=== PATIENT | female | born 1995 | race Caucasian/White ===

== ENCOUNTER 2020-12-17 11:21 | Outpatient (CLI) | payer OTHER, SELFPAY ==
--- NOTE | 2020-12-17 | DI.RAD_ITS ---
Exam(s) XR LUMBAR SPINE AP, LAT EXAM: XR LUMBAR SPINE AP, LAT CLINICAL HISTORY: LUMBAR BACK PAIN, M54.5. TECHNIQUE: 2D digital imaging was performed. COMPARISON: CR THORACIC SPINE from 10/25/2011 CR THORACIC SPINE from 10/25/2011 FINDINGS: Rods are seen from the lower thoracic region extending down to the L4 level. The hardware and spinal alignment appears unchanged based on previous thoracic spine films. There are T roll bodies are wel l maintained in height. The L4-5 and L5-S1 discs appear normal. The SI joints are unremarkable. IMPRESSION: Stable appearance spinal hardware. DATA REPOSITORY: RADIATION DOSE DELIVERED:
== END 2020-12-17 11:41 ==
PROVIDERS: PCP Physician Assistant; Visit Provider Clinical Nurse Specialist Family Health
DX: M54.5 Low back pain (principal); Z98.890 Other specified postprocedural states; Z98.1 Arthrodesis status
CPT/HCPCS: 72100

== ENCOUNTER → 2021-10-28 13:32 | Outpatient (CLI) | payer OTHER, SELFPAY ==
--- NOTE | 2021-10-28 13:30 | DI.RAD_ITS ---
Exam(s) XR THORACIC SPINE COMPLETE EXAM: XR THORACIC SPINE COMPLETE CLINICAL HISTORY: evaluate vertebral alignment and spacing, M54.6, thoracic back pain. TECHNIQUE: 2D digital imaging was performed. Three views. COMPARISON: MR MRI - THORACIC SPINE WO CONT from 07/22/2009 CR CERVICAL SP. LIMITED (TRAUMA) from 10/25/2011 CR XR LUMBAR SPINE AP, LAT from 12/17/2020 FINDINGS: There are spinal rods extending from the upper thoracic level through the lumbar level. There is a s coliosis convex toward the right in the thoracic region and a known scoliosis convex toward the left in the lumbar region. The samuel somewhat obscure the vertebral bodies on the AP view. No compression deformities are seen. The heart size is normal. The visualized portions of the lungs are clear. IMPRESSION: Spinal rods for correction of scoliosis. DATA REPOSITORY: RADIATION DOSE DELIVERED:
--- OUTSIDE RECORDS SUMMARY | 2021-10-28 13:37 | XMS_ITS | Clinical Summary ---
:1995 Author Organization [facility] [place] [address] Care Team Providers Name Role Phone Michelle Schulz MD Primary Care Provider Allergies No known active allergies Medications Medication Sig Dispensed Refills Start Date End Date Status ranitidine (ZANTAC 75) 0 06/02/2010 Active 75 mg tablet norgestimate-ethinyl Take 1 tablet by 0 Active estradiol (ORTHO mouth daily. TRI-CYCLEN;TRI-SPRINTE C) 0.18/0.215/0.25 mg-35 mcg (28) tablet FERROUS SULFATE, DRIED Take by mouth. 0 Active (IRON, DRIED, ORAL) sertraline (ZOLOFT) 50 Take 75 mg by 0 Active mg tablet mouth daily. Active Problems Problem Noted Date Celiac disease 02/15/2012 Folliculitis 03/01/2011 Resolved Problems Problem Noted Date Resolved Date CIS - Entered not Verified 05/10/2010 02/15/2012 CIS - abd pain 04/04/2010 02/15/2012 Immunizations Name Administration Dates Next Due Pneumococcal Polyvalent 23 09/25/2012 Social History Tobacco Use Types Packs/Day Years Used Date Never Smoker Alcohol Use Standard Drinks/Week Comments No 0 (1 standard drink = 0.6 oz pure alcoho l) Sex Assigned at Date Recorded Not on file Last Filed Vital Signs Vital Sign Reading Time Taken Comments Blood Pressure 94/64 09/25/2012 11:02 AM EDT Pulse 90 09/25/2012 11:02 AM EDT Temperature 36.7 ??C (98.1 ??F) 02/19/2012 9:18 AM EST Respiratory Rate 16 02/19/2012 10:04 AM EST Oxygen Saturation 99% 02/19/2012 10:04 AM EST Inhaled Oxygen Concentration - - Weight 47.4 kg (104 lb 9.6 oz) 09/25/2012 11:02 AM EDT Height 164.5 cm (5' 4.75) 09/25/2012 11:02 AM EDT Body Mass Index 17.54 09/25/2012 11:02 AM EDT Plan of Treatment Health Maintenance Due Date Last Done Comments Covid-19 Vaccine (#1) 08/25/2000 HPV vaccine (1 - 2-dose series) 08/25/2006 HIV screen 08/25/2013 Hepatitis C Screening 08/25/2013 Tdap adult 08/25/2014 Tetanus vaccine 08/25/2014 PAP Smear 08/25/2016 Influenza (Flu) vaccine (1 of 1 - Influenza standard 12/08/2021 series) Care Teams Classroom Instructor Relationship Specialty Start Date End Date Michelle Schulz MD PCP - General 03/01/10 [address] [place] [address]
--- OUTSIDE RECORDS SUMMARY | 2021-10-28 13:38 | XMS_ITS | Encounter Summary ---
:1995 Author Organization [facility] Address [address] [place] [address] Care Team Providers Name Role Phone Michelle Schulz MD Primary Care Provider Encounter Details Date Type Department Care Team Description 02/19/2012 Anesthesia Event Gastroenterology at [facility] Vern Holliday MD [facility] [address] [place] [address] [facility] Shaina Ro MD [facility] [place] [address] [place] [address] Anesthesia Record Procedure Summary Procedure Name Responsible Anesthesia Start Anesthesia Stop Anesthesiologist Time Time UPPER GASTROINTESTINAL Vern Holliday MD 02/19/12 0941 02/18 1004 ENDOSCOPY,WITH BIOPSY SINGLE OR MULTIPLE (WRVU 2.49) (N/A ) Events Date Time Event Comment 02/19/2012 0932 0941 Start 1004 Stop No medications on file. Agents No agents on file. Blood No blood administrations on file. Lines, Drains, and Airways Type Details Placement Removal PIV 02/19/12; 0934; 02/19/12; 02/19/12 0934 by Kimmie ponce, 02/19/12 1048 by Marvin, 1048 MEÑO Venegas RN documented in this encounter Social History Tobacco Use Types Packs/Day Years Used Date Never Smoker Alcohol Use Standard Drinks/Week Comments No 0 (1 standard drink = 0.6 oz pure alcoho l) Sex Assigned at Date Recorded Not on file documented as of this encounter OR Notes Anesthesia Postprocedure Evaluation - Vern Holliday MD - 02/19/2012 10:21 AM EST Patient: Dakota Cuevas Procedure(s) Performed: Procedure(s): UPPER GASTROINTESTINAL ENDOSCOPY,WITH BIOPSY SINGLE OR MULTIPLE Patient location: PACU Post-op pain: Adequate analgesia Post-op nausea: no nausea or vomiting Last Vitals: Filed Vitals: 02/19/12 1004 BP: 88/45 Pulse: 74 Temp: Resp: 16 Post-op cardiovascular and respiratory status: is stable Level of consciousness: awake Complications: no apparent complications Fluid Status: normal Anesthesia Preprocedure Evaluation - Vern Holliday MD - 02/19/2012 9:30 AM EST Today I evaluated Dakota Cuevas a 16 y.o. female. Procedure(s): PEDIATRIC UPPER GI ENDOSCOPY Patient Active Problem List Diagnoses ??? Celiac disease ??? Folliculitis No past medical history on file. No past surgical history on file. History Substance Use Topics ??? Smoking status: Never Smoker ??? Smokeless tobacco: Not on file ??? Alcohol Use: No No Known Allergies Operation for scoliosis about one year ago idiopathic Medications: MAR and/or home medications have been reviewed. Physical Exam: There were no vitals filed for this visit. There is no height or weight on file to calculate BMI. Airway Assessment: Mallampati: I TM distance: >3 FB Neck ROM: full Cardiovascular Assessment: Rhythm: regular Rate: normal Pulmonary Assessment: breath sounds clear to auscultation Dental Assessment: Misc Assessment: Anesthesia Plan: ASA 2 MAC with intravenous induction Informed Consent: Anesthetic plan and risks discussed with patient and mother. Plan discussed with resident. Misc. Assessment: documented in this encounter Miscellaneous Notes Addendum Note - Abbie Travis - 02/20/2012 10:18 AM EST Addendum created 02/20/12 1018 by Abbie Travis Modules edited:Anesthesia Events, Anesthesia Responsible Staff documented in this encounter Plan of Treatment Not on filedocumented as of this encounter Visit Diagnoses Not on filedocumented in this encounter Care Teams Arcade Technician Relationship Specialty Start Date End Date Michelle Schulz MD PCP - General 03/01/10 [address] [place] [address] documented as of this encounter
--- OUTSIDE RECORDS SUMMARY | 2021-10-28 13:38 | XMS_ITS | Encounter Summary ---
:1995 Author Organization [facility] [place] [address] Care Team Providers Name Role Phone Michelle Schulz MD Primary Care Provider Encounter Details Date Type Department Care Team Description 06/02/2010 Procedure visit [address] [address] Social History Tobacco Use Types Packs/Day Years Used Date Never Assessed Sex Assigned at Date Recorded Not on file documented as of this encounter Plan of Treatment Not on filedocumented as of this encounter Visit Diagnoses Not on filedocumented in this encounter Care Teams Project Controls Scheduler Relationship Specialty Start Date End Date Michelle Schulz MD PCP - General 03/01/10 [place] [address] documented as of this encounter
--- OUTSIDE RECORDS SUMMARY | 2021-10-28 13:38 | XMS_ITS | Encounter Summary ---
:1995 Author Organization [facility] [place] [address] Care Team Providers Name Role Phone Michelle Schulz MD Primary Care Provider Encounter Details Date Type Department Care Team Description 02/19/2012 Surgery Gastroenterology at [facility] Gricelda Edwards UPPER GASTROINTESTINAL [facility] Annabel Torrez MD ENDOSCOPY,[place] [address] ONE [facility]ICAL SINGLE OR MULTIPLE ([facility] [phone] Nicole) [place] [address] Social History Tobacco Use Types Packs/Day Years Used Date Never Smoker Alcohol Use Standard Drinks/Week Comments No 0 (1 standard drink = 0.6 oz pure alcoho l) Sex Assigned at Date Recorded Not on file documented as of this encounter Last Filed Vital Signs Vital Sign Reading Time Taken Comments Blood Pressure 88/45 02/19/2012 10:04 AM EST Pulse 74 02/19/2012 10:04 AM EST Temperature 36.7 ??C (98.1 ??F) 02/19/2012 9:18 AM EST Respiratory Rate 16 02/19/2012 10:04 AM EST Oxygen Saturation 99% 02/19/2012 10:04 AM EST Inhaled Oxygen Concentration - - Weight - - Height - - Body Mass Index - - documented in this encounter Discharge Instructions Discharge InstructionsNolan Wong RN - 02/19/2012 10:04 AM EST You may have received medication before and/or during your procedure which effects judgement and reaction time. Do not drive, operate machinery, drink alcoholic beverages, or make important decisions for 24 hours. Be careful on stairs, as you may be unsteady on your feet. You may eat a regular diet as tolerated. Do not smoke if you are alone. IV site -- slight redness or tenderness is normal. You may use a warm compress. If tenderness and redness increases or foul drainage occurs please contact your M.D. Please call [phone] before 5 pm with problems, questions or concerns. After 5pm call [phone] and ask to speak with the color strainer information officer. Discharge instructions reviewed with patientwho expresses understanding. AttachmentsThe following attachments cannot be sent through Care Everywhere. UPPER GI ENDOSCOPY IN CHILDREN: WHAT TO EXPECT AT HOME ([place])documented in this encounter Medications at Time of Discharge Medication Sig Dispensed Refills Start Date End Date norgestimate-ethinyl Take 1 tablet by 0 estradiol (ORTHO mouth daily. TRI-CYCLEN;TRI-SPRINTEC) 0.18/0.215/0.25 mg-35 mcg (28) tablet FERROUS SULFATE, DRIED Take by mouth. 0 (IRON, DRIED, ORAL) ranitidine (ZANTAC 75) 75 0 06/02/2010 mg tablet documented as of this encounter H&P Notes Gricelda Edwards MD - 02/19/2012 9:41 AM EST No change in resp status documented in this encounter Miscellaneous Notes Miscellaneous - Provider, Scanning - 02/19/2012 10:59 PM EST Miscellaneous - Provider, Scanning - 02/19/2012 10:56 PM EST Miscellaneous - Provider, Scanning - 02/19/2012 9:20 AM EST documented in this encounter Plan of Treatment Not on filedocumented as of this encounter Procedures Procedure Name Priority Date/Time Associated Comments Diagnosis UPPER GASTROINTESTINAL Routine 02/19/2012 7:55 Diarrhea ENDOSCOPY,WITH BIOPSY PM EST SINGLE OR MULTIPLE SURGICAL PATHOLOGY Routine 02/19/2012 11:54 Resul ts for this REPORT AM EST procedure are i n the results section. SPECIMEN TO PATHOLOGY Routine 02/19/2012 10:04 Re sults for this AM EST procedure are i n the results section. UPPER GASTROINTESTINAL 02/19/2012 9:45 Diarrhea ENDOSCOPY,WITH BIOPSY AM EST SINGLE OR MULTIPLE (WRVU 2.49) PEDIATRIC UPPER GI Routine 02/19/2012 9:38 Result s for this ENDOSCOPY AM EST procedure are i n the results section. documented in this encounter Results SURGICAL PATHOLOGY REPORT (02/19/2012 11:54 AM EST) Component Value Ref Test Analysis Performed At [facility] gist Range Method Time Signature Surgical [facility] ? [facility] Report ? Provider: ?? GRICELDA EDWARDS ?Pt. Name: ?? DAKOTA OSUNA ? Acc #: ?[id number] ?Pt. MRN: ?[id number] ? Col Date: ?? 02/19/20 12 ?/Sex: ?1995,(16 years),Female ? Rec Date: ?? 02/19/2012 ?LOC: ?4T ? SURGICAL PATHOLOGY ? ---Pathologic Diagnosis--- ? A - Duodenum; endoscopic biopsies: ? Duodenal mucosa with inflam mation, villous atrophy, and increased ? intraepithelial lymphocytes consistent with titi iac disease. ? CR-0 ? 02/20/12 ? KO ? 02/20/12 Verified by: ? Shaina Ruelas MD ? Pathologist ? (Electronic Si gnature) ? The attending pathologist whose signature appears o n this report has ? reviewed all diagnostic slides and has edited the hiram ss and/or ? microscopic portion of the report in rendering the fi nal pathologic ? diagnosis. ? ---Microscopic Description--- ? Slides reviewed, microscopic description not recorded . ? ---Gross Description--- ? Labeled/Fixative: ? Small bowel, formalin. ? Qty/Size/Weight: ?Four, averaging 0.3 x 0.2 x 0.2 cm. ? Tissue Description: ?? Soft, hussein tissues. ? Sections/Processing: ??(T1) ??aje/PPS ? ---Clinical Information--- ? Specimen Submitted: ? A - Small bowel ? Clinical History/Diagnosis: ? Positive celiac test Specimen (Source) Anatomical Collection Method Collection Time Re ceived Time Location / / Volume Laterality 02/19/2012 11:54 AM EST Gricelda Edwards MD PATHOLOGY/CYTOLOGY ORDERABLE S Performing Organization Address City/State/ZIP Code Phon e Number [address] [facility] Specimen to Pathology (surgical or derm) (02/19/2012 10:04 AM EST) Specimen Anatomical Collection Method Collection Time Receive d Time (Source) Location / / Volume Laterality AP Specimen 02/19/2012 10:04 02/19/2012 AM EST 10:04 AM EST Narrative [facility] - 02/19/2012 10:04 AM EST Specimen requisition ordered. ??Separate Pathology report to follow Gricelda Edwards MD PATHOLOGY/CYTOLOGY ORDERABLE S Performing Organization Address City/[facility]/[place] [address] [facility] [employer] PEDIATRIC UPPER GI ENDOSCOPY (02/19/2012 9:38 AM EST) [facility] gist Method Time Signature [facility] [employer] Upper Gi Endo Endoscopy Patient Name: Dakota Cuevas ? Procedure Date: 02/19/2012 9:38 AM ? Date of : 1995 ? Age: 16 ? Order #: [id number] ? Procedure: ? Pediatric Upper GI Endoscopy Indications: ? positive celiac blood test Providers: ? Gricelda Edwards MD, Abbie Tony RN Referring : ?Michelle Schulz MD Medicines: ? General Anesthesia without ET Tube Complications: ? No immediate complications. Procedure: ? After obtaining informed consent, the ? endoscope was passed under di rect ? vision. Throughout the proced ure, the ? patient's blood pressure, pul se, and ? oxygen saturations were monit ored ? continuously. The [place] 2 012 was ? introduced through the mouth, and ? advanced to the fourth part o f ? duodenum. The upper GI endosc opy was ? accomplished with ease. ? Findings: ? nl stomach and esophageal mucosa. Small bowel with ? notching-biopsied ? Impression: ?celiac likely Recommendation: ?- Await pathology results. ? Gricelda Edwards MD 02/19/2012 10:07 AM This report has been signed electronically. Number of Addenda: 0 Note Initiated On: 02/19/2012 9:38 AM Specimen (Source) Anatomical Collection Method Collection Time Re ceived Time Location / / Volume Laterality 02/19/2012 9:38 AM EST Michelle Schulz MD GENERAL SURGICAL ORDERABLES Performing Organization Address City/State/ZIP Code Phon e Number [employer] documented in this encounter Visit Diagnoses Diagnosis Diarrhea Diarrhea documented in this encounter Active and Recently Administered Medications Care Teams Meat Apprentice Relationship Specialty Start Date End Date Michelle Schulz MD PCP - General 03/01/10 [address] [place] [address] documented as of this encounter
--- OUTSIDE RECORDS SUMMARY | 2021-10-28 13:38 | XMS_ITS | Encounter Summary ---
:1995 [place] [address] Care Team Providers Name Role Phone Michelle Schulz MD Primary Care Provider Encounter Details Date Type Department Care Team Description 04/07/2010 Hospital En[place] [facility] [place] Anali [place] MD [facility] [place] [address] [place] [address] [phone] (Wo rk) Social History Tobacco Use Types Packs/Day Years Used Date Never Assessed Sex Assigned at Date Recorded Not on file documented as of this encounter Plan of Treatment Not on filedocumented as of this encounter Visit Diagnoses Not on filedocumented in this encounter Care Teams Bath Mix Operator Relationship Specialty Start Date End Date Michelle Schulz MD PCP - General 03/01/[address] [place] [address] [place] [address] documented as of this encounter
--- OUTSIDE RECORDS SUMMARY | 2021-10-28 13:38 | XMS_ITS | Encounter Summary ---
:1995 Author Organization [facility] [place] [address] Care Team Providers Name Role Phone Michelle Schulz MD Primary Care Provider Encounter Details Date Type Department Care Team Description 02/20/2012 Telephone Pediatric Gastroenterology at [facility], Gricelda Torrez MD [facility] Annabel romero [place] [address] [place] [address] [phone] (Wo rk) Social History Tobacco Use Types Packs/Day Years Used Date Never Smoker Alcohol Use Standard Drinks/Week Comments No 0 (1 standard drink = 0.6 oz pure alcoho l) Sex Assigned at Date Recorded Not on file documented as of this encounter Miscellaneous Notes Telephone Encounter - Gricelda Edwards MD - 02/20/2012 1:22 PM EST The biopsy was definite celiac. Dakota should feel better within a month on the diet. I would like to see her the summer. Please call if any questions arise before then [phone] She should take vitamin D 1000 IU a day until July. She should take a B complex vitamin Both are over the counter documented in this encounter Plan of Treatment Not on filedocumented as of this encounter Visit Diagnoses Not on filedocumented in this encounter Care Teams Skid Strapper Relationship Specialty Start Date End Date Michelle Schuzl MD PCP - General 03/01/[address] [place] [address] [place] [address] documented as of this encounter
--- OUTSIDE RECORDS SUMMARY | 2021-10-28 13:38 | XMS_ITS | Encounter Summary ---
:1995 Author Organization [facility] [place] [address] Care Team Providers Name Role Phone Michelle Schulz MD Primary Care Provider Reason for Visit Reason Comments Rash Encounter Details Date Type Department Care Team Description 03/01/2011 Office Visit Dermatology Germain Valentin, Folliculitis (Primary [address] MD Dx) [address] [place] [id number] [place] [address] [phone] (Wo rk) Social History Tobacco Use Types Packs/Day Years Used Date Never Smoker Sex Assigned at Date Recorded Not on file documented as of this encounter Progress Notes Germain Valentin MD - 03/01/2011 9:34 AM EST Problem: Rash. Dakota is now 15 and since December has had a problem with a papular dermatitis on the lateral neck bilaterally and was also at one point on the upper central chest. It seemed to start after she took courses of oral antibiotics for her acne. She has tried using topical Triamcinolone Cream and this made it worse, if she takes Claritin it seems to help the rash. She uses [employer] Soap, uses Proactiv for her facial acne and uses a Clearasil Moisturizer. The rash is not pruritic. She is also on Ranitidine, iron and Tri-Sprintec. She is referred by Dr. Brooks. Physical examination reveals a reserved 15-year-old who has erythematous uniform papules on the lateral neck bilaterally starting just below the ears and extending assisted down the lateral neck. She has no dermatitis or findings on the chest or back. There are no pustules. The patient has mild and quite minimal erythematous papular acne of the chin and forehead. She is brown eyed and dark haired. 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 a. 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 b. Discussed how oral antibiotics can exacerbate this condition and discussed its pathogenesis. c. Recommended that the patient also not use any further corticosteroid creams to this area. Expect that it should resolve and clear. d. RTC here p.r.n. e. May continue with topical Proactiv and Clearasil Moisturizer and current [employer] liquid soap. Copy: Serafin Brooks MD documented in this encounter Plan of Treatment Not on filedocumented as of this encounter Visit Diagnoses Diagnosis Folliculitis - Primary Other specified disease of hair and hair follicles documented in this encounter Care Teams Supervisor Paint Relationship Specialty Start Date End Date Michelle Schulz MD PCP - General 03/01/10 [place] [address] documented as of this encounter
--- OUTSIDE RECORDS SUMMARY | 2021-10-28 13:38 | XMS_ITS | Encounter Summary ---
:1995 Author Organization [facility] Address [facility] [place] [address] Care Team Providers Name Role Phone Michelle Schulz MD Primary Care Provider Encounter Details Date Type Department Care Team Description 02/19/2012 Hospital En[place] [facility] [place] Edwards, Diarrhea [facility] [place] [address] [facility] [phone] [facility] [place], [place] [address] Social History Tobacco Use Types Packs/Day Years [...] documented in this encounter Discharge Instructions Discharge Nolan Jasso RN - 02/19/2012 10:04 AM EST You [...] occurs please contact your M.D. Please call [phone] before 5 pm with problems, questions or concerns. After 5pm call [phone] and ask to speak with the truss driver helper neon sign installer. Discharge instructions reviewed with patientwho expresses understanding. AttachmentsThe following attachments cannot be sent through Care Everywhere. UPPER GI ENDOSCOPY IN CHILDREN: WHAT TO EXPECT AT HOME (QATARI)documented in this encounter Medications at Time of [...] Component Value Ref Test Analysis Performed At [facility] Range Method Time Signature Surgical CERNER Pathology ? [facility] Report ? Provider: ?? GRICELDA EDWARDS ?Pt. Name: ?? DAKOTA OSUNA ? Acc #: ?[id number] ?Pt. MRN: ?[id number] ? Col Date: ?? 02/19/20 12 ?/Sex: [...] MD PATHOLOGY/CYTOLOGY ORDERABLE S Performing Organization Address City/[facility]/ZIP Code Phon e Number [address] [email or web address] Specimen to Pathology (surgical or derm) (02/19/2012 10:04 AM EST) Specimen Anatomical Collection Method Collection Time Receive d Time (Source) Location / / Volume Laterality AP Specimen 02/19/2012 10:04 02/19/2012 AM EST 10:04 AM EST Narrative CERNER MILLENNIUM - 02/19/2012 10:04 AM EST Specimen requisition ordered. ??Separate Pathology report to follow Gricelda Edwards MD PATHOLOGY/CYTOLOGY ORDERABLE S Performing Organization Address City/State/[place] [address] CERNER MILLENNIUM PEDIATRIC UPPER GI ENDOSCOPY (02/19/2012 9:38 AM EST) [facility] gist Method Time Signature Pediatric [facility] Upper Gi Endo Endoscopy Patient Name: Dakota Cuevas ? Procedure Date: 02/19/2012 9:38 AM ? Date of : 1995 ? Age: 16 ? Order #: [id number] ? Procedure: ? Pediatric Upper GI Endoscopy [...] in this encounter Visit Diagnoses Diagnosis Diarrhea documented in this encounter Active and Recently Administered Medications Care Teams Concrete Smoother Relationship Specialty Start Date End Date Michelle Schulz MD PCP - General 03/01/10 RHONDA [place] [address] documented as of this encounter
== END ==
PROVIDERS: PCP Nurse Practitioner Family; Visit Provider Nurse Practitioner Family
DX: M54.6 Pain in thoracic spine (principal); M41.9 Scoliosis, unspecified
CPT/HCPCS: 72072

== ENCOUNTER 2022-02-16 04:43 | Outpatient (CLI) | payer OTHER, SELFPAY ==
[2022-02-16 14:57] LABS: Absolute Basophil Count 0.07 10^3/uL (0.0-0.2); Absolute Eosinophil Count 0.14 10^3/uL (0.0-0.7); Absolute Lymphocyte Count 2.21 10^3/uL (1.2-3.4); Absolute Monocyte Count 0.53 10^3/uL (0.1-0.8); Absolute Neutrophil Count 3.45 10^3/uL (1.2-6.7); Basophils % 1.1; Eosinophils % 2.2; HCT 41.5 % (36.0-46.0); HGB 14.1 g/dL (11.2-15.7); Lymphocytes % 34.5; MCH 31.3 pg (27.0-33.0); MCV 92 fL (80-95); MPV 11.4 fL (8.0-11.0); Monocytes % 8.3; Neutrophils % 53.9; Platelet Count 255 10^3/uL (130-400); RDW 13.1 % (11.7-14.6); RDW-SD 44.5 fL
[2022-02-16 15:44] LABS: Anion Gap 7.4 mmol/L (3-11); BUN 9 mg/dL (7-18); CO2 28.6 mmol/L (21.0-32.0); CREATININE 0.8 mg/dL (0.55-1.02); Calcium 9.5 mg/dL (8.5-10.1); Calculated LDL 106 mg/dL (<100); Chloride 100 mmol/L (98-107); Cholesterol 206 mg/dL (<200); Estimated GFR 104.15 (mL/min/1.73m2); Glucose 82 mg/dL (74-106); HDL Cholesterol 85 mg/dL (40-60); Potassium 3.7 mmol/L (3.5-5.1); Sodium 136 mmol/L (136-145); TSH (W/Ref FT4) 2.04 uIU/mL (0.36-3.74); Triglyceride 76 mg/dL (<150)
== END 2022-02-16 04:44 | disposition home or self-care (01) ==
PROVIDERS: PCP Nurse Practitioner Family; Visit Provider Nurse Practitioner Family
DX: Z00.00 Encounter for general adult medical examination without abnormal findings (principal); K90.0 Celiac disease
CPT/HCPCS: 36415; 80048; 80061; 84443; 85025

== ENCOUNTER 2024-08-19 14:00 | Outpatient (CLI) | payer BC, SELFPAY ==
--- NOTE | 2024-08-19 15:38 | DI.RAD_ITS ---
Exam(s) XR LUMBAR SPINE COMPLETE EXAM: XR LUMBAR SPINE COMPLETE CLINICAL HISTORY: Continued low back pain, S/P spinal fusion 2011, M54.50, M41.20. TECHNIQUE: 2D digital imaging was performed. COMPARISON: CR XR LUMBAR SPINE AP, LAT from 12/17/2020 FINDINGS: Five views Again noted are multilevel posterior fusion rods from the lower thoracic region extending down to and including the L4 level. Hardware appears intact and secured by multiple intrapedicular screws and t here is a crossbar again noted at the L1 level. The relationship of the intrapedicular screws relati ve to the superior endplates is satisfactory. There is no evidence of hardware fracture or loosening . L4-5 and L5-S1 levels continue to exhibit normal height and no listhesis. Visualized sacroiliac j oints appear unremarkable. IMPRESSION: As above. Radiographically unchanged from images of 12/17/2020. DATA REPOSITORY: RADIATION DOSE DELIVERED:
--- NOTE | 2024-08-19 15:38 | DI.RAD_ITS ---
Exam(s) XR SACRUM EXAM: XR SACRUM CLINICAL HISTORY: Cont low back pain, s/p spinal fusion, 2011 M54.50, M41.20. TECHNIQUE: 2D digital imaging was performed. COMPARISON: No exams were available for comparison FINDINGS: Two views-AP and lateral No evidence of sacral nor coccyx fracture. No presacral soft tissue mass to suggest hematoma. The s acroiliac joints appear unremarkable. Bone density normal. No osseous lesions in the sacrum. IMPRESSION: No significant radiograph findings on these two views of the sacrum. DATA REPOSITORY: RADIATION DOSE DELIVERED:
== END 2024-08-19 14:20 ==
LOC: DI 14:01
PROVIDERS: PCP Nurse Practitioner Family; Visit Provider Nurse Practitioner Family
DX: M54.50 Low back pain, unspecified (principal); M41.20 Other idiopathic scoliosis, site unspecified
CPT/HCPCS: 72110; 72220

== ENCOUNTER 2024-11-20 09:22 | Outpatient (REF) | payer BC, SELFPAY ==
--- NOTE | 2024-11-20 09:00 | PAPFT_PTH ---
PATIENT: Dakota Cuevas LOC: [facility] U#:[id number] AGE/SX: 29/F ROOM: RE11/20/[address]: GRADY Cardenas : 1995 BED: DIS: 11/20/2024 SPEC #: [id number] RECD: 11/20/24 12:52 STATUS: CIRA REQ #: [id number] SUSANA: 11/20/24 09:[address]: Kristal Bryson DEPT: [facility] Cytology RECD BY: Kika Cooper Tissues: 1 - CX/ENDOCX FOR PAP SMEARS Procedures: PAP THIN PREP/[facility] Screening Comments: [id number] (CHLAMYDIA/GC)
[2024-11-21 12:26] LABS: Chlamydia Result Negative (Negative); GC Result Negative (Negative)
== END 2024-11-20 09:23 | disposition home or self-care (01) ==
LOC: LBN 09:22
PROVIDERS: PCP Nurse Practitioner Family; Visit Provider Nurse Practitioner Family
DX: Z12.4 Encounter for screening for malignant neoplasm of cervix (principal); N76.0 Acute vaginitis
CPT/HCPCS: 87491; 87591; 88142